=== PATIENT | female | born 1955 | race Caucasian/White ===

== ENCOUNTER 2019-03-30 08:00 | Outpatient (CLI) | payer OTHER | END 2019-03-30 10:00 | disposition home or self-care (01) | LOC: D.MAMMO 08:00 | PROVIDERS: ATTEND Family Medicine | DX: Z12.31 Encounter for screening mammogram for malignant neoplasm of breast (principal) ==

== ENCOUNTER → 2019-04-06 07:59 | Outpatient (CLI) | payer OTHER ==
--- NOTE | 2019-04-08 09:24 | EC ---
PATIENT:BOBBY OWENS DATE OF SERVICE: 04/06/19 SEX: F MEDICAL RECORD: [id number] DATE OF : [birth year] [facility] AGE OF PATIENT: 64 ADMISSION DATE: 04/06/19 REFERRING PHYSICIAN: INTERPRETING PHYSICIAN: ANNY EUBANKS MD ECHOCARDIOGRAM REPORT ECHO CHARGES 4 ECHO COMPLETE Date: 04/06/19 CLINICAL DIAGNOSIS: HTN/DYSPNEA ON EXERTION,SYSTOLIC MURMUR ECHOCARDIOGRAPHIC MEASUREMENTS (adult normal given) AC root (d.<3.7cm) 2.5 cm LV Septum d (<1.2 cm> 1.2 cm Valve Excursion 0.90 cm LV Septum (systole) 1.4 cm Left Atria (s.<4.0cm> 3.2 cm LVPW d(<1.2cm) 1.5 cm RV (d.<2.3cm) 2.9 cm LVPW (sytole) 1.6 cm LV diastole(<5.6CM) 4.0 cm MV E-F(>70mm/sec) cm LV systole 2.6 cm LVOT Diameter 1.4 cm MV exc.(>10mm) 1.4 cm Est.ejection fraction (50-75%) % DOPPLER: LVIT cm/sec A 62.0 cm/sec E 53.0 cm/sec LA cm/sec RVSP 30 mmHg LVOT 104 cm/sec AOP1/2T m/s Asc. Ao 116 cm/sec RVOT 72 cm/sec RA cm/sec PA 113 cm/sec AV Gradient Peak 5.41 mmHg AV Mean 2.86 mmHg AV Area 1.5 cm MV Gradient Peak 2.90 mmHg MV Mean 0.71 mmHg MV Area cm COMMENTS: Bow Stapler: 2 ZORAIDA ROSENBERG Manager Credit: 3 Dr. Acosta TAPE# PACS Pericardial Effusion N DATE OF SERVICE: Adequate 2D, color-flow and spectral Doppler, and M-mode. LVH is present. LV internal dimensions are normal. Wall motion is normal. EF is greater than 55%. Aortic valve is tricuspid. No evidence of stenosis by Doppler interrogation. Left atrium normal at 3.8 cm. Mitral valve shows no prolapse. Trace MR. Right-sided chambers normal. Trace TR. TRANSINT:[id number] Voice Confirmation ID: [id number] DOCUMENT ID: [id number] ECHOCARDIOGRAM REPORT [id number] BOBBY OWENS,ANNY Larose MD at 0924 CC: [id number] DICTATION DATE: 04/07/19 1008 BEHAVIOR INTERVENTIONIST: 04/07/19 1143 DEP CLI 04/06/19 [facility] [address] [place] [address]
--- NOTE | 2019-04-10 12:04 | ST ---
PATIENT:BOBBY OWENS MEDICAL RECORD: [id number] SEX: F LOCATION:[facility] ORDER #: ADMISSION DATE: 04/06/19 AGE OF PATIENT: 64 REFERRING PHYSICIAN: INTERPRETING PHYSICIAN: STEVE GUERRERO MD DATE OF SERVICE: 04/06/2019 NUCLEAR STRESS TEST INDICATION: Angina, abnormal ECG, hypertension, shortness of breath. She exercised on standard Jamaal protocol for 7 minutes 30 seconds completed putting greater than 85% max target heart rate response with 33 mCi of sestamibi injected at peak stress, 11 mCi used previously for rest images. FINDINGS: Gated SPECT was not performed secondary to technical difficulties. OVERALL IMPRESSION: This is a normal nuclear stress test with no evidence of inducible ischemia or previous infarction. TRANSINT:[id number] Voice Confirmation ID: [id number] DOCUMENT ID: [id number] STEVE GUERRERO MD at 1204 CC: JESSENIA REED MD [id number] DICTATION DATE: 04/09/19 1151 TOOL MECHANIC: 04/09/19 2242 DEP CLI 04/06/19 [facility] [id number] [place] [address]
== END | disposition home or self-care (01) ==
LOC: D.HCCARDIO 07:59
PROVIDERS: ATTEND Internal Medicine Interventional Cardiology
DX: I20.9 Angina pectoris, unspecified (principal)

== ENCOUNTER 2019-06-14 08:00 | Outpatient (CLI) | payer OTHER | END 2019-06-14 23:59 | disposition home or self-care (01) | LOC: D.MAMMO 08:00 | PROVIDERS: ATTEND Family Medicine | DX: R92.8 Other abnormal and inconclusive findings on diagnostic imaging of breast (principal) ==